=== PATIENT | female | born 1990 | race Caucasian/White ===

== ENCOUNTER 2017-04-04 14:08 | Inpatient (IN) | payer OTHER ==
[~2017-04-04 14:08] MED LIST: COLACE100 M1 PO; IBUPROFEN800 M1 PO; PRENATAL VITAM1 EAC5 PO
[2017-04-04 15:00] LABS: BASO % 0.2 % (0-2); EOS % 0.7 % (0-7); EOSINOPHIL ABSOLUTE COUNT 0.1 tho/cmm (0.0-0.7); IMMATURE GRANULOCYTES ABSOLUTE 0.04 tho/cmm (0-0.03); IMMATURE GRANULOCYTES PERCENT 0.4 % (0-0.3); LYMPH % 18.8 % (20-45); MCH (MEAN CORPUSCULAR HGB) 25.3 pg (28.0-32.0); MCHC MEAN CORPUSCULAR HGB CONC 32.4 % (32.0-36.0); MCV (MEAN CELL VOLUME) 78.3 fl (82.0-96.0); MEAN PLATELET VOLUME 11.1 cmc (9.4-12.4); MONO % 6.2 % (0-12); MONOCYTE ABSOLUTE COUNT 0.7 tho/cmm (0.0-1.2); NEUTROPHIL ABSOLUTE COUNT 7.9 tho/cmm (1.6-8.0); NEUTROPHIL-AUTOMATED 7.9 tho/cmm (1.6-8.0); NEUTROPHILS % 73.7 % (40-80); PLATELET COUNT 271 tho/cmm (150-450); RED BLOOD COUNT 4.34 mil/cmm (4.00-5.20); RED CELL DISTRIBUTION WIDTH 12.5 % (12.4-16.4); WHITE BLOOD COUNT 10.7 tho/cmm (4.0-10.0)
[2017-04-04] MEDS ORDERED: TUMS200 MG PO (15:05)
[2017-04-07] MEDS ORDERED: IBUPROFEN800 M1 PO (01:11)
[2017-04-07] MEDS ORDERED: PERCOCET 5-3251 EACH PO (01:12)
== END 2017-04-07 16:15 | DRG 765 ==
LOC: LDR 14:08 → OBGD 18:00
PROVIDERS: Obstetrics & Gynecology; ADMIT Advanced Practice Midwife
PROC: 10D00Z1 Extraction of Products of Conception, Low, Open Approach (ICD-10-PCS; principal; 2017-04-04)
DX: O32.1XX0 Maternal care for breech presentation, not applicable or unspecified (principal); O41.03X0 Oligohydramnios, third trimester, not applicable or unspecified; O14.94 Unspecified pre-eclampsia, complicating childbirth; O99.824 Streptococcus B carrier state complicating childbirth; Z3A.38 38 weeks gestation of pregnancy; Z37.0 Single live birth; Z88.1 Allergy status to other antibiotic agents; O24.420 Gestational diabetes mellitus in childbirth, diet controlled; Z79.82 Long term (current) use of aspirin
CPT/HCPCS: J0690; J2270; J2590